=== PATIENT | male | born 1980 | race Native Hawaiian/Other Pacific Islander ===

== ENCOUNTER 2021-07-27 15:33 | Outpatient (CLI) | payer OTHER ==
[~2021-07-27] VITALS: Ht 185.4 cm; Wt 105.2 kg
== END 2021-07-27 20:18 | disposition home or self-care (01) ==
LOC: INF 15:33
PROVIDERS: ATTEND Family Medicine
DX: Z23 Encounter for immunization (principal); U07.1 COVID-19
CPT/HCPCS: 96365; M0244